=== PATIENT | female | born 1930 | race Caucasian/White ===

== ENCOUNTER 2017-10-28 11:47 | Emergency (ER) | payer MEDICARE, OTHER ==
[2017-10-28] MEDS ORDERED: Sodium Chloride 0.9% 10 ML Syringe FLUSH PRN (12:14)
[2017-10-28] MEDS ORDERED: Sodium Chloride 0.9% 1,000 ML IV SCH (12:15)
--- NOTE | 2017-10-28 12:17 | EDM.PDOC ---
ED HPI GENERAL MEDICAL PROBLEM - General Chief Complaint: General Stated Complaint: [facility] Time Seen by Provider: 10/28/17 12:00 Source of Information: Reports: Patient, Family (daughter) History Limitations: Reports: Other (hard of hearing) - History of Present Illness INITIAL COMMENTS - FREE TEXT/NARRATIVE: Patient is a 86-year-old female who presents to the ED with concerns of falling today. Patient is supposed to be using a walker but does not with in her residence. States today while walking in her daughter's residence while puppy sitting she became dizzy and fell hitting the right side of her head. There was no loss of consciousness. She believes she may be on a blood thinner. She has a slight headache. No bruising noted. Patient does have a history of falling frequently secondary to dizziness over many months. Patient states with standing oftentimes gets dizzy that normally resolves on its own accord. Again she is supposed to be using a walker. Daughter states at times trips over furniture and/or carpets. With admission to the ED today she has no complaints except for the right temporal discomfort. Daughter states patient does not go to her primary care provider on a normal basis. She is on multiple medications for her heart. She had a FL in 2003 with stent placement. She does not see a development planner anymore. She does have a history of hypertension, hypercholesterolemia, depression/anxiety, and GERD. Patient denies orthopnea, PND, increased edema to lower extremities, neck pain, n/v, vision changes, chest pain, shortness of breath, palpitations, belly pain, dysuria, pain to the upper or lower extremities, and or hips. She denies weakness to the upper/lower extremities, slurred speech, difficulty swallowing. She has never had a stroke. Patient is on lorazepam 0.5 mg 4 times a day for anxiety, lovastatin 5 mg 1 tablet by mouth daily, losartan with potassium 50 mg one tab by mouth daily, amitriptylin 25 mg 3 tablets by mouth at bedtime, omeprazole 20 mg 1 tablet by mouth twice a day, metoprolol 50 mg extended release 1 tablet mouth twice a day , Imdur 30 mg extended release 1 tablet by mouth daily, and Lasix 20 mg 1 tablet by mouth daily. - Related Data Allergies Allergy/AdvReac Type Severity Reaction Status Date / Time No Known Allergies Allergy Verified 10/28/17 12:01 Home Meds: Home Meds Amitriptyline [Elavil] 75 mg PO BEDTIME 10/28/17 [History] Aspirin [Ecotrin] 325 mg PO DAILY 10/28/17 [History] Furosemide [Lasix] 20 mg PO DAILY 10/28/17 [History] Isosorbide Mononitrate [Imdur] 30 mg PO DAILY 10/28/17 [History] LORazepam [Ativan] 0.5 mg PO Q6H PRN 10/28/17 [History] Losartan Potassium 50 mg PO DAILY 10/28/17 [History] Metoprolol Succinate 50 mg PO DAILY 10/28/17 [History] Omeprazole 20 mg PO DAILY 10/28/17 [History] Rosuvastatin [Crestor] 5 mg PO BEDTIME 10/28/17 [History] Past Medical History Cardiovascular History: Reports: Hypertension Neurological History: Reports: Other (See Below) Other Neuro History: dizziness Social & Family History - Tobacco Use Smoking Status *Q: Unknown Ever Smoked Second Hand Smoke Exposure: No - Caffeine Use Caffeine Use: Reports: Coffee - Recreational Drug Use Recreational Drug Use: No ED ROS GENERAL - Review of Systems Review Of Systems: ROS reveals no pertinent complaints other than HPI. ED EXAM, GENERAL - Physical Exam Exam: See Below Exam Limited By: No Limitations General Appearance: Alert, WD/WN, No Apparent Distress, Other Eye Exam: Bilateral Eye: EOMI, Nystagmus (none noted), PERRL Ears: Hearing Grossly Normal Nose: Normal Inspection, Normal Mucosa, No Blood Throat/Mouth: Normal Voice, No Airway Compromise, Other (dry oral mucosa) Head: Other (tenderness to the right mu-ism. no swelling, ecchymosis, bony abnormalities noted. ) Neck: Normal Inspection, Supple, Non-Tender, Full Range of Motion Respiratory/Chest: No Respiratory Distress, Lungs Clear, Normal Breath Sounds, No Accessory Muscle Use, Chest Non-Tender Cardiovascular: Normal Peripheral Pulses, Regular Rate, Rhythm, No Murmur ( obvious) Peripheral Pulses: 4+: Radial (L), Radial (R) GI/Abdominal: Normal Bowel Sounds, Soft, Non-Tender, No Organomegaly, No Distention Back Exam: Normal Inspection. No: CVA Tenderness (L), CVA Tenderness (R) Extremities: Normal Inspection, Non-Tender, No Pedal Edema, Normal Capillary Refill Neurological: Alert, Oriented, CN II-XII Intact, Normal Cognition, Normal Gait ( per nursing), No Motor/Sensory Deficits Psychiatric: Normal Affect, Normal Mood Skin Exam: Warm, Dry, Intact, Normal Color, No Rash Course - Vital Signs Last Recorded V/S: Last Vital Signs Temp 96.9 F 10/28/17 11:55 Pulse 71 10/28/17 11:55 Resp 20 10/28/17 11:55 BP 178/85 H 10/28/17 11:55 Pulse Ox 95 10/28/17 11:55 - Orders/Labs/Meds Labs: Laboratory Tests 10/28/17 10/28/17 10/28/17 Range/Units 12:30 12:30 13:00 WBC 6.41 (3.98-10.04) K/mm3 RBC 4.58 (3.98-5.22) M/mm3 Hgb 12.7 (11.2-15.7) gm/L Hct 39.8 (34.1-44.9) % MCV 86.9 (79.4-94.8) fl MCH 27.7 (25.6-32.2) pg MCHC 31.9 L (32.2-35.5) g/dl RDW Std Deviation 43.7 (36.4-46.3) fL Plt Count 189 (182-369) K/mm3 MPV 9.6 (9.4-12.3) fl Neutrophils % (Manual) 65 H (40-60) % Band Neutrophils % 0 (0-10) % Lymphocytes % (Manual) 27 (20-40) % Atypical Lymphs % 0 % Monocytes % (Manual) 4 (2-10) % Eosinophils % (Manual) 3 (0.7-5.8) % Basophils % (Manual) 1 (0.1-1.2) Platelet Estimate Adequate RBC Morph Comment Normal Sodium 144 (136-145) mEq/L Potassium 3.6 (3.5-5.1) mEq/L Chloride 106 (98-107) mEq/L Carbon Dioxide 31 (21-32) mEq/L Anion Gap 10.6 (5-15) BUN 14 (7-18) mg/dL Creatinine 0.8 (0.55-1.02) mg/dL Est Cr Clr Drug Dosing 45.42 mL/min Estimated GFR (MDRD) > 60 (>60) mL/min BUN/Creatinine Ratio 17.5 (14-18) Glucose 99 (83-115) mg/dL Calcium 8.7 (8.5-10.1) mg/dL Total Bilirubin 0.4 (0.2-1.0) mg/dL AST 19 (15-37) U/L ALT 23 (14-59) U/L Alkaline Phosphatase 82 (46-116) U/L Troponin I < 0.017 (0.00-0.056) ng/mL C-Reactive Protein < 0.2 (<1.0) mg/dL Total Protein 6.6 (6.4-8.2) g/dl Albumin 3.6 (3.4-5.0) g/dl Globulin 3.0 gm/dL Albumin/Globulin Ratio 1.2 (1-2) TSH 3rd Generation 5.971 H (0.358-3.74) uIU/mL Urine Color Yellow (Yellow) Urine Appearance Clear (Clear) Urine pH 6.5 (5.0-8.0) Ur Specific [place] 1.015 (1.005-1.030) Urine Protein Negative (Negative) Urine Glucose (UA) Negative (Negative) Urine Ketones Negative (Negative) Urine Occult Blood Negative (Negative) Urine Nitrite Negative (Negative) Urine Bilirubin Negative (Negative) Urine Urobilinogen 0.2 (0.2-1.0) Ur Leukocyte Esterase Negative (Negative) Urine RBC 0-5 (0-5) /hpf Urine WBC 0-5 (0-5) /hpf Ur Epithelial Cells 0-5 (0-5) /hpf Amorphous Sediment Few H (NOT SEEN) /hpf Urine Bacteria Rare (FEW) /hpf Urine Mucus Not seen (FEW) /hpf Meds: Medications Discontinued Medications Generic Name Dose Route Start Last Admin Trade Name Freq PRN Reason Stop Dose Admin Sodium Chloride 1,000 mls @ 150 mls/hr 10/28/17 12:15 10/28/17 13:11 Normal Saline IV 150 mls/hr ASDIRECTED RIZWAN Administration Sodium Chloride 10 ml 10/28/17 12:14 10/28/17 13:11 Saline Flush FLUSH 10 ml ASDIRECTED PRN Administration Keep Vein Open - Re-Assessments/Exams Free Text/Narrative Re-Assessment/Exam: IV established with normal saline with 125 mL per hour, CBC, chem 14, CRP, troponin, TSH, UA, chest x-ray one view, head CT without contrast, and EKG. 10/28/17 12:33 We have attempted to get medical records from [facility] they are closed on . We were able to get medication records from [facility]. See HPI. EKG: Sinus rhythm rate of 68 with WA interval 184 and QTC 528. No acute ST changes noted. 10/28/17 13:[address] impression: Mild senescent change. Nothing acute is identified on noncontrast head CT exam. CXR reviewed with with no acute findings. Labs: Sodium 139, potassium 3.6, hCG 14.6, creatinine 0.7, glucose 121, AST 137 , ALT 73, TSH 0.096. UA negative for any concerning findings. Urine drug tox negative. Labs reviewed: CBC essentially normal. Differential is still pending. CMP was essentially normal as well. Troponin less than 0.017. CRP less than 0.2. TSH mildly elevated at 5.971. UA reviewed with no concerning findings. CBC Diff unremarkable. 1407 Will get patient up to walk and see how she does. Discussed lab results and studies with the patient. She has no complaints this time. Per nursing staff patient has been up walking with no issues. I have discussed with the patient in stopping the lorazepam since I do believe this medication is causing increased drowsiness and alertness. Patient agrees with this when she takes this med she feels very drowsy and forgetful. Reviewed all her other medications as well. She has been known to take all her a.m. medications at the same time. We discussed spreading these medications out over a few hours to decrease the side effects associated with taking all the meds that one time. She does have a appointment scheduled with Dr. Lofton for Tuesday at 11:30. Patient and daughter agree with plan. Will discharge patient home with instructions as documented. Departure - Departure Time of Disposition: 14:20 Disposition: Home, Self-Care 01 Condition: Good Clinical Impression: Falls frequently, Unsteady gait, Episode of dizziness - Discharge Information Instructions: Dizziness, [id number] Referrals: Christi Lofton [Physician] - 11/01/17 11:15 am Forms: ED Department Discharge Additional Instructions: You must utilize walker to ambulate in your residence. Suggest slip resistant stocking and or shoes while ambulating to decrease risk of slipping. Keep areas frequently traveled free of clutter. Ensure adequate hydration and consumption of balanced diet. Suspect symptoms are largely related to the medications you are currently taking. Will have you stop taking lorazepam since you noted this medication causes increased drowsiness and confusion. Take metoprolol twice a day as prescribed. Suggest taking the losartan with potassium approximately 1-2 hours after taking the metoprolol to reduce any side effects. Take the amitriptyline at night since this can cause increased drowsiness. Continue taking the Imdur, omeprazole, aspirin,crestor, and Lasix. Please monitor for worsening symptoms has discussed. Return to the E.D. if you should experience any new or worsening symptoms. Appt with Dr. Cartagena has been scheduled for this coming Tuesday at 1120 to establish care. Bring all medications and current medical records with you.
--- NOTE | 2017-10-28 12:51 | CT ---
Head CT Technique: Multiple axial sections through the brain were obtained. Intravenous contrast was not utilized. Comparison: No prior intracranial imaging. Findings: Ventricles along with basal cisterns and sulci are convexities are mildly prominent. Mild areas of diminished density is noted within portions of the periventricular white matter and basal ganglia which is felt compatible with small vessel ischemic demyelination change. No other abnormal parenchymal densities are seen. No evidence of intracranial hemorrhage. No midline shift or mass effect is seen. Bone window settings were reviewed which shows no acute calvarial abnormality. Visualized sinuses are clear. Impression: 1. Mild senescent change. 2. Nothing acute is identified on noncontrast head CT exam. Diagnostic code #2
--- NOTE | 2017-10-28 12:57 | CR ---
Chest: Frontal view of the chest was obtained. Comparison: Prior chest x-ray of 02/02/[address] of 10/12/13. Slight widening of the superior mediastinum is seen which appears stable. This is felt to be due to tortuous great vessels. Heart size has a slight left ventricular configuration. Tortuous thoracic aorta is seen. Lungs are clear with no acute parenchymal densities. Bony structures are grossly intact. Impression: 1. Incidental findings. Nothing acute is identified on portable chest x-ray. Diagnostic code #2
== END 2017-10-28 14:35 | disposition home or self-care (01) ==
LOC: SUPCPDRO 11:47 → JD.ED 11:47
DX: R42 Dizziness and giddiness (principal); R26.9 Unspecified abnormalities of gait and mobility; Z79.82 Long term (current) use of aspirin; Z79.899 Other long term (current) drug therapy
CPT/HCPCS: 36415; 70450; 71045; 80053; 81001; 84443; 84484; 85025; 86140; 93005; 96360; 99285; J7040; J7050; 99283